=== PATIENT | male | born 1960 | race Caucasian/White ===

== ENCOUNTER 2016-09-27 19:03 | Emergency (ER) | payer SELFPAY ==
--- NOTE | 2016-09-27 21:16 | RAD ---
RIGHT HAND THREE VIEWS 09/27/16 HISTORY: Right hand injury. FINDINGS: Cortical remodeling at the base of the fifth metacarpal may represent an old injury. Degenerative ch anges are present throughout the hand. No acute fracture or dislocation are apparent. IMPRESSION: 1. Suspected old healed fracture involving the fifth metacarpal base. 2. 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 1. POS: [facility]
== END 2016-09-27 20:25 | disposition home or self-care (01) ==
LOC: MADERS 19:03
DX: S60.221A Contusion of right hand, initial encounter (principal); F17.210 Nicotine dependence, cigarettes, uncomplicated; W18.30XA Fall on same level, unspecified, initial encounter

== ENCOUNTER 2016-09-28 17:27 | Emergency (ER) | payer SELFPAY ==
--- NOTE | 2016-09-28 18:51 | RAD ---
RIGHT HAND FOUR VIEWS 09/28/16 HISTORY: Right hand injury. FINDINGS: Cortical remodeling involving the base of the fifth metacarpal has the appearance of an old healed i njury. Mild degenerative changes are present. No acute fracture, dislocation or aggressive osseous e rosions are evident. IMPRESSION: Suspected old healed fracture involving the fifth metacarpal base. POS: [facility]
== END 2016-09-28 18:55 | disposition home or self-care (01) ==
LOC: MADERS 17:27
DX: S60.221A Contusion of right hand, initial encounter (principal); F17.210 Nicotine dependence, cigarettes, uncomplicated; W19.XXXA Unspecified fall, initial encounter

== ENCOUNTER 2016-10-12 16:28 | Emergency (ER) | payer SELFPAY ==
--- NOTE | 2016-10-12 20:19 | CT ---
CT RIGHT HAND WITHOUT CONTRAST HISTORY: Hand pain. Injured on the lateral side of the hand. The patient is still in lots of pain. COMPARISON: Left hand radiograph from 09/28/2016. FINDINGS: No acute fracture or malalignment. There is an old fifth metacarpal base fracture. Subtle widening at the scapholunate interval suggests a low grade ligamentous injury. The scaphoid is intact. Lunate alignment is normal. The hook of the hamate and tubercle of the trapezium are intact. There is mild degenerative disease at the distal radial ulnar joint. The soft tissues are unremarkable. IMPRESSION: 1. Subtle widening of the scapholunate interval suggests a low grade injury. MRI may be obtained f or a more detailed evaluation. 2. No acute fracture or malalignment. 3. Suspected old injury of the fifth metacarpal base. POS: [facility]
== END 2016-10-12 19:04 | disposition home or self-care (01) ==
LOC: MADERS 16:28
DX: S63.004A Unspecified dislocation of right wrist and hand, initial encounter (principal); F17.210 Nicotine dependence, cigarettes, uncomplicated; Z79.899 Other long term (current) drug therapy; X58.XXXA Exposure to other specified factors, initial encounter
CPT/HCPCS: 29125

== ENCOUNTER 2017-04-08 18:29 | Emergency (ER) | payer SELFPAY ==
[~2017-04-08 18:29] MED LIST: Sodium Chloride 0.9% 100 ML BAG ONE
[2017-04-08] MEDS ORDERED: HYDROcodone/Acetaminophen 10/325 mg Tablet ONE (19:35)
[2017-04-08] MEDS ORDERED: Naproxen 500 MG TAB ONE (19:35)
[2017-04-08 21:52] LABS: Clarity Clear (Clear); Leukocyte Negative (Negative); Specific Gravity, Urine 1.025 (1.005-1.030); pH, Urine 5.5 (5.0-9.0)
[2017-04-08 21:53] LABS: Bilirubin Small (Negative); Glucose, Urine (Dipstick) Negative (Negative); Nitrite Negative (Negative); Protein, Urine (Dipstick) Trace mg/dL (Neg-Trace); Urobilinogen 0.2 mg/dL (0.2-1.0)
[2017-04-08 21:55] LABS: Bacteria/HPF None Seen HPF (None Seen); Blood, Urine Negative (Negative); Icto Negative (Negative); RBC/HPF 0-3 HPF (0-3); Squamous Epithelial 0-3 HPF (0-3); Transitional Epithelial 0-3 HPF (0-3); WBC/HPF 0-3 HPF (0-3)
[2017-04-08 21:56] LABS: Other Microscopic Description 1+ MUCUS
[2017-04-08 22:36] LABS: #Basophils 0.1 thou/uL (0.0-0.2); #Eosinphils 0.2 thou/uL (0.0-0.7); #Monocytes 0.9 thou/uL (0.11-0.59); #Neutrophils 5.3 thou/uL (1.40-6.50); %Basophils 1.4 % (0.0-1.0); %Eosinophils 2.9 % (0.0-10.0); %Monocytes 10.8 % (0.0-10.0); Hemoglobin 12.9 g/dL (14.0-18.0); Mean Corpuscular HGB CONC 32.6 g/dL (32.0-36.0); Mean Corpuscular Hemoglobin 29.4 pg (27.0-31.0); Mean Platelet Volume 6.2 fL (7.4-10.4); Platelet Count 290 thou/uL (130-400); RBC Distribution Width 13.8 % (11.5-14.5); White Blood Cell (WBC) Count 8.6 thou/uL (4.8-10.8)
[2017-04-08 22:54] LABS: ALT (SGPT) 22 U/L (8-55); AST (SGOT) 21 U/L (5-34); Alkaline Phosphatase 113 U/L (40-150); Anion Gap 16 mmol/L (10-20); BUN (Urea Nitrogen) 21 mg/dL (8.4-25.7); Bilirubin, Total 0.3 mg/dL (0.2-1.2); Calc. Creatinine Clearance 0 mL/min (70-130); Calcium 9.5 mg/dL (7.8-10.44); Carbon Dioxide 24 mmol/L (22-29); Chloride 102 mmol/L (98-107); Estimated GFR-MDRD Greater than 90; Globulin 2.8 g/dL (2.4-3.5); Glucose 88 mg/dL (70-105); Potassium 3.9 mmol/L (3.5-5.1); Protein, Total 6.8 g/dL (6.0-8.3); Sodium 138 mmol/L (136-145)
--- NOTE | 2017-04-08 23:21 | CT ---
EXAM: ABDOMEN CT WITHOUT CONTRAST PELVIC CT WITHOUT CONTRAST 04/08/17 HISTORY: Right lower quadrant suprapubic pain x1 month. COMPARISON: None. TECHNIQUE: Abdomen and pelvic CT are performed without contrast. Coronal reformatted images are submitted for i nterpretation. FINDINGS: ABDOMEN CT: Heart is enlarged. No significant pericardial fluid. The visualized aorta has a normal caliber. The visualized lung bases are clear. Surgically absent gallbladder. Limited evaluation of the solid organs due to the absence of IV contr ast. No solid organ abnormality. No mesenteric mass, lymphadenopathy, free air or free fluid. Limited evaluation of the alimentary canal due to lack of oral contrast. Hiatal hernia is noted. Gas tric mucosal and duodenum are unremarkable. Multiple normal caliber small bowel loops. Ileocecal alba ction is normal. Normal caliber appendix appears to emanate from the cecal apex. Note, the tip of the appendix is slightly prominent with a small appendicolith. Minimal inflammatory change. Correlate for possible tip appendicitis. Scattered fecal material throughout the colon is n oted. There is mucosal prominence involving the distal sigmoid colon and proximal rectum. Correlate for infectious or inflammatory process. Underlying neoplastic process cannot be excluded. Bilaterally, no hydronephrosis, nephrolithiasis, or perinephric fat stranding. Left and right ureter have a normal caliber. No hydroureter, periureteral fat stranding or ureterolithiasis. PELVIC CT: Ventral abdominal wall hernia repair is noted. Urinary bladder is unremarkable. No pelvic mass, lymp hadenopathy or free air. There is mild stranding of the fat adjacent to the distal sigmoid colon and rectum. There is no osteoblastic or osteolytic lesions. IMPRESSION: 1. Mucosal prominence involving the sigmoid colon and rectum. Correlate for proctitis. 2. Normal caliber appendix. However, there is mild prominence of the tip of the appendix with a small appendicolith. Early appendicitis cannot be excluded. Correlate clinically. POS: [facility]
[2017-04-09] MEDS ORDERED: Ketorolac Tromethamine 30 MG/ML VIAL ONE (00:28)
[2017-04-09] MEDS ORDERED: metroNIDAZOLE 250 MG TAB ONE (00:28)
[2017-04-09] MEDS ORDERED: Ondansetron HCl/PF 4 MG/2 ML Vial ONE (00:28)
[2017-04-09] MEDS ORDERED: cefTRIAXone\\ROCEPHIN 2 GM VIAL ONE (00:28)
== END 2017-04-09 01:22 | disposition home or self-care (01) ==
LOC: MADERS 18:29
DX: K62.89 Other specified diseases of anus and rectum (principal); K37 Unspecified appendicitis; F17.210 Nicotine dependence, cigarettes, uncomplicated; Z79.1 Long term (current) use of non-steroidal anti-inflammatories (NSAID); Z79.899 Other long term (current) drug therapy
CPT/HCPCS: 74176; 80053; 81001; 85025; 87086; 96374; 96375; J0696; J1885; J2405; J7050

== ENCOUNTER 2018-08-10 16:33 | Emergency (ER) | payer SELFPAY ==
--- NOTE | 2018-08-10 17:58 | RAD ---
LEFT FEMUR TWO VIEWS: 08/10/18 HISTORY: Injury to thigh. There are no signs of fracture or dislocation. IMPRESSION: Negative left femur. POS: [facility]
--- NOTE | 2018-08-10 17:59 | RAD ---
LEFT KNEE FOUR VIEWS: 08/10/18 HISTORY: Knee injury. There are mild arthritic changes of the knee. There is no joint effusion or fracture. IMPRESSION: No evidence of acute injury. POS: [facility]
--- NOTE | 2018-08-10 18:00 | RAD ---
LEFT ANKLE THREE VIEWS: 08/10/18 HISTORY: Ankle injury. There are soft tissue swelling around the ankle. There are no signs of fracture or dislocation. No constance int effusion is identified. IMPRESSION: No evidence of fracture. POS: [facility]
== END 2018-08-10 17:52 | disposition home or self-care (01) ==
LOC: MADERS 16:33
DX: R60.0 Localized edema (principal); M79.605 Pain in left leg; F17.210 Nicotine dependence, cigarettes, uncomplicated; Z79.899 Other long term (current) drug therapy; W19.XXXA Unspecified fall, initial encounter

== ENCOUNTER 2018-08-28 12:28 | Emergency (ER) | payer SELFPAY | END 2018-08-28 13:15 | disposition home or self-care (01) | LOC: MADERS 12:28 | DX: R60.0 Localized edema (principal); S93.402D Sprain of unspecified ligament of left ankle, subsequent encounter; F17.210 Nicotine dependence, cigarettes, uncomplicated; Z79.899 Other long term (current) drug therapy; W01.0XXA Fall on same level from slipping, tripping and stumbling without subsequent striking against object, initial encounter | CPT/HCPCS: 99283 ==